=== PATIENT | female | born 1935 | race Native Hawaiian/Other Pacific Islander ===

== ENCOUNTER 2016-12-28 14:44 | Emergency (ER) | payer OTHER ==
[2016-12-28 15:33] VITALS: BMI 21.8
--- NOTE | 2016-12-28 15:56 | ED PDOC ---
Arrival/HPI - General Chief Complaint: Dizziness/Lightheaded Time Seen by Provider: 12/28/16 15:26 - History of Present Illness Narrative History of Present Illness (Text): 12/28/16 15:56 Patient is an 81 year old F presenting with dizziness x 2 weeks. Patient reports that she has dizziness, described as lightheadedness when she goes from sitting to standing, worse in the morning when getting out of bed. She reports some dizziness when ambulating. Denies chest pain or shortness of breath. Daughter reports that mother had a hx of similar complaints when she had a prior uti. Denies fever, cough, uri symptoms. Denies syncope or trauma. She has had prior hx of strokes and negative workup for carotid disease 12/28/16 18:38 Past Medical History - Cardiac Hx Hypertension: Yes - Neurological HX Cerebrovascular Accident: Yes Hx Vertigo: Yes - Psychiatric Hx Substance Use: No Family/Social History Family/Social History: No Known Family HX Smoking Status: Never Smoked Hx Alcohol Use: No Hx Substance Use: No Allergies/Home Meds Allergies/Adverse Reactions: Allergies No Known Allergies Allergy (Verified 12/28/16 15:22) Home Medications: Home Meds Medication Instructions Recorded Confirmed Losartan [Cozaar] 100 mg 12/28/16 Metoprolol Tartrate [Lopressor] 50 mg 12/28/16 Simvastatin [Simvastatin] 10 mg 12/28/16 Review of Systems - Review of Systems Constitutional: absent: Fatigue, Weight Change Eyes: absent: Vision Changes ENT: absent: Hearing Changes Respiratory: absent: SOB, Cough, Sputum, Wheezing Cardiovascular: absent: Chest Pain, Palpitations, Edema, Calf Pain, MARINO, Orthopnea Gastrointestinal: absent: Abdominal Pain, Constipation, Diarrhea, Nausea, Vomiting Genitourinary Female: absent: Dysuria Neurological: Other (lightheaded). absent: Headache, Dizziness, Focal Weakness , Gait Changes, Speech Changes, Facial Droop Psychiatric: absent: Anxiety Physical Exam Vital Signs Temp Pulse Resp BP Pulse Ox 12/28/16 18:06 98.0 F 75 18 150/75 99 12/28/16 16:00 77 18 150/79 97 Temperature: Afebrile Blood Pressure: Normal Pulse: Regular Respiratory Rate: Normal Appearance: Positive for: Well-Appearing, Non-Toxic, Comfortable Pain Distress: None Mental Status: Positive for: Alert and Oriented X 3 - Systems Exam Head: Present: Atraumatic, Normocephalic Pupils: Present: PERRL Extroacular Muscles: Present: EOMI Conjunctiva: Present: Normal Ears: Present: NORMAL TM Mouth: Present: Moist Mucous Membranes Neck: Present: Normal Range of Motion Respiratory/Chest: Present: Clear to Auscultation, Good Air Exchange. No: Respiratory Distress, Accessory Muscle Use Cardiovascular: Present: Regular Rate and Rhythm, Normal S1, S2. No: Murmurs Abdomen: No: Tenderness, Distention Back: Present: Normal Inspection. No: CVA Tenderness Upper Extremity: Present: Normal Inspection Lower Extremity: Present: Normal Inspection Neurological: Present: GCS=15, CN II-XII Intact, Speech Normal, Motor Func Grossly Intact, Normal Sensory Function, Gait Normal Psychiatric: Present: Alert, Oriented x 3 Medical Decision Making ED Course and Treatment: 12/28/16 15:57 Patient is complaining of lightheadedness, mostly in the morning and always from sitting to standing. No chest pain or shortness of breath. Not reproducible in ER. Neurologically intact and ambulating around emergency department without issue. EKG shows NSR at 78bpm with normal intervals and no ST changes. 12/28/16 17:08 Patient is not orthostatic and cannot reproduce symptoms. Symptoms have been greater than 2 weeks and are consistent with orthostatic hypotension. CBC and CMP grossly normal. Trop x 1 negative. Cxray negative. Urinalysis shows leukocytes. 12/28/16 18:38 Patient denies dysuria and is otherwise asymptomatic but daughter reports this is similar to prior presentation and is requesting medication for uti. Had detailed conversation with mother and daughter. She is neurologically intact. She was instructed to follow-up with neurology and PMD and reports understanding. - Lab Interpretations Lab Results: 12/28/16 16:15 12/28/16 16:15 Lab Results 12/28/16 16:41: Urine Color Yellow, Urine Appearance Clear, Urine pH 7.0, Ur Specific [place] 1.010, Urine Protein Negative, Urine Glucose (UA) Negative, Urine Ketones Negative, Urine Blood Negative, Urine Nitrate Negative, Urine Bilirubin Negative, Urine Urobilinogen 0.2, Ur Leukocyte Esterase Trace H, Urine RBC Negative, Urine WBC 0 - 2, Ur Epithelial Cells 0 - 2, Urine Bacteria Neg 12/28/16 16:15: Sodium 142, Potassium 4.8, Chloride 104, Carbon Dioxide 31, Anion Gap 12, BUN 18, Creatinine 0.7, Est GFR ( Amer) > 60, Est GFR (Non- Af Amer) > 60, Random Glucose 94, Calcium 10.1, Phosphorus 4.1, Magnesium 2.3 H , Total Bilirubin 0.5, AST 35, ALT 30, Alkaline Phosphatase 104, Lactate Dehydrogenase 414, Total Creatine Kinase 32 L, Troponin I < 0.01, Total Protein 7.7, Albumin 4.2, Globulin 3.5, Albumin/Globulin Ratio 1.2 12/28/16 16:15: WBC 8.0, RBC 5.30, Hgb 15.2, Hct 46.8, MCV 88.3, MCH 28.7, MCHC 32.5, RDW 13.6, Plt Count 197, MPV 9.8, Gran % 63.1, Lymph % (Auto) 29.5, Wallace % (Auto) 6.7 H, Eos % (Auto) 0.6 L, Baso % (Auto) 0.1, Gran # 5.05, Lymph # 2.4 , Wallace # 0.5, Eos # 0.1, Baso # 0.01 - RAD Interpretation Radiology Orders: 12/28/16 15:50 CHEST PORTABLE [RAD] Stat Disposition/Present on Arrival - Present on Arrival Any Indicators Present on Arrival: No History of DVT/PE: No History of Uncontrolled Diabetes: No Urinary Catheter: No History of Decub. Ulcer: No History Surgical Site Infection Following: None - Disposition Have Diagnosis and Disposition been Completed?: Yes Diagnosis: Orthostatic hypotension, UTI (urinary tract infection) Disposition: HOSPITALIZED Disposition Time: 18:53 Patient Problems: Current Active Problems Problem Status Onset Orthostatic hypotension Acute UTI (urinary tract infection) Acute Condition: GOOD Discharge Instructions (ExitCare): Lightheadedness (ED) Additional Instructions: Follow up with PMD within 2 days. Return to emergency department if condition worsens. Take full course of antibiotics for uti, Prescriptions: Nitrofurantoin Macrocrystals [Macrobid] 100 mg PO BID #10 cap
[2016-12-28 16:33] VITALS: RESP 18
[2016-12-28 16:35] LABS: BASO # 0.01 K/mm3 (0.0-2.0); BASO % 0.1 % (0.0-3.0); EOS # 0.1 (0.0-0.7); EOS % 0.6 % (1.5-5.0); GRAN # 5.05 (1.4-6.5); GRAN % 63.1 % (50.0-68.0); HEMOGLOBIN 15.2 gm/dL (12.0-16.0); LYMPH # 2.4 (1.2-3.4); LYMPH % 29.5 % (22.0-35.0); MEAN CELL VOLUME 88.3 fL (80.0-105.0); MEAN CORPUSCULAR HEMOGLOBIN 28.7 pg (25.0-35.0); MEAN CORPUSCULAR HGB CONC 32.5 g/dl (31.0-37.0); MEAN PLATELET VOLUME 9.8 fl (7.0-11.0); MONO # 0.5 (0.1-0.6); MONO % 6.7 % (1.0-6.0); PLATELET COUNT 197 10^3/uL (120.0-450.0); RED CELL DISTRIBUTION WIDTH 13.6 % (11.5-14.5)
[2016-12-28 16:41] LABS: ALB/GLOB RATIO 1.2 (1.1-1.8); ALBUMIN 4.2 g/dL (3.0-4.8); ALT/SGPT 30 U/L (7-56); AST/SGOT 35 U/L (15-39); BLOOD UREA NITROGEN 18 mg/dL (7-21); CALCIUM 10.1 mg/dL (8.4-10.5); GFR AFRICAN-AMERICAN > 60; GFR NON-AFRICAN AMERICAN > 60; MAGNESIUM 2.3 mg/dL (1.7-2.2)
[2016-12-28 16:52] LABS: URINE BILIRUBIN NEGATIVE (NEGATIVE); URINE BLOOD NEGATIVE (NEGATIVE); URINE GLUCOSE (UA) NEGATIVE (NEGATIVE); URINE LEUKOCYTE ESTERASE TRACE Leu/uL (NEGATIVE); URINE NITRATE NEGATIVE (NEGATIVE); URINE PROTEIN NEGATIVE mg/dL (<30 mg/dL); URINE UROBILINOGEN 0.2 E.U./dL (<1 E.U./dL)
[2016-12-28 16:55] LABS: URINE APPEARANCE CLEAR (CLEAR); URINE COLOR YELLOW (YELLOW)
[2016-12-28 17:06] LABS: TROPONIN I < 0.01 ng/mL
[2016-12-28 17:17] LABS: URINE BACTERIA NEG (NEG); URINE EPITHELIAL CELLS 0 - 2 /hpf (0-5); URINE RBC NEGATIVE /hpf (0-2); URINE WBC 0 - 2 /hpf (0-6)
--- NOTE | 2016-12-28 17:32 | RAD ---
HISTORY: lightheaded COMPARISON: No prior. FINDINGS: LUNGS: The lungs are well inflated. PLEURA: No significant pleural effusion identified, no pneumothorax apparent. CARDIOVASCULAR: And clear the heart is normal in size. Atherosclerotic aortic arch calcifications are present. . OSSEOUS STRUCTURES: No significant abnormalities. VISUALIZED UPPER ABDOMEN: Normal. OTHER FINDINGS: None. IMPRESSION: No active pulmonary disease.
[2016-12-28 18:14] VITALS: TEMP 98
[2016-12-28 19:47] VITALS: BP 144/80; PULSE 74; O2SAT 98
--- NOTE | 2016-12-29 10:22 | CARD ---
APPROVED REPORT EKG Measurement Heart [id number] <Conclusion> Normal sinus rhythm Normal ECG
--- NOTE | 2016-12-29 13:25 | CARD ---
APPROVED REPORT EKG Measurement Heart [id number] <Conclusion> Normal sinus rhythm Normal ECG
== END 2016-12-28 19:00 | disposition short-term general hospital (02) ==
LOC: ED 14:44
DX: I95.1 Orthostatic hypotension (principal); N39.0 Urinary tract infection, site not specified